=== PATIENT | male | born 1995 | race African-American/Black ===

== ENCOUNTER 2018-10-06 18:21 | Emergency (ER) | payer SELFPAY ==
[~2018-10-06] VITALS: Ht 170.2 cm; Wt 127.0 kg
[2018-10-06 18:29] VITALS: BP 149/86
--- NOTE | 2018-10-06 18:37 | NUR ---
PT AMBULATORY TO ROOM 5 W/ WANTING TO HAVE AN STD CHECK. PER PT HIS GF CAME BACK POSITIVE FOR CHLAMYDIA. PT RESTING ON GURNEY. QUINONEZ.
[2018-10-06] MEDS ORDERED: AZITHROMYCIN 500 MG TABLET ONE (19:08)
[2018-10-06] MEDS ORDERED: CEFTRIAXONE 250 MG ONE (19:09)
[2018-10-06 19:27] LABS: CULTURE INDICATED? YES; MICROSCOPIC INDICATED
[2018-10-06] MEDS ORDERED: AZITHROMYCIN 500 MG TABLET PO ONE (19:30)
[2018-10-06] MEDS ORDERED: CEFTRIAXONE 250 MG IM ONE (19:30)
== END 2018-10-06 20:50 | disposition home or self-care (01) ==
LOC: ED 20:44
DX: A74.9 Chlamydial infection, unspecified (principal); A54.9 Gonococcal infection, unspecified
CPT/HCPCS: 81001; 87086; 87491; 87591; 96372; 99283; J0696

== ENCOUNTER 2019-09-04 03:56 | Emergency (ER) | payer MEDICAID, OTHER ==
[~2019-09-04] VITALS: Ht 172.7 cm; Wt 130.0 kg
--- NOTE | 2019-09-04 04:16 | NUR ---
THIS IS A 24Y M THAT COMES IN THIS MORNING FOR COUGH AND SOB. PT STS HE DEVOLOPED A COUGH AROUND EAST AND IT HAS NOT GOTTEN ANY BETTER. PT STS HE HASN'T HAD AND SICK CONTACTS OR TRAVEL BUT STS HIS FRIEND WORKS IN A [employer] AND HAS BEEN AT HIS HOUSE RECENTLY. PT STS HE HAS A HX OF HTN. PT CONNECTED TO MONITORING, VSS, NADN AT THIS TIME.
[2019-09-04 05:56] VITALS: BP 145/76
--- NOTE | 2019-09-04 06:06 | NUR ---
Patient/Caregiver given discharge instructions and they have confirmed that they understand the instructions. Patient ambulatory with steady gait.
== END 2019-09-04 06:07 | disposition home or self-care (01) ==
LOC: ED 04:22
DX: J06.9 Acute upper respiratory infection, unspecified (principal); R07.89 Other chest pain; R00.0 Tachycardia, unspecified
CPT/HCPCS: 71045; 93005; 99283

== ENCOUNTER 2020-04-19 11:41 | Emergency (ER) | payer MEDICAID ==
[~2020-04-19] VITALS: Ht 170.2 cm; Wt 131.0 kg
[2020-04-19 11:50] VITALS: BP 145/68
[2020-04-19] MEDS ORDERED: IBUPROFEN 800 MG TABLET PO ONE (12:30)
== END 2020-04-19 13:51 | disposition home or self-care (01) ==
LOC: ED 13:30
DX: G89.11 Acute pain due to trauma (principal); M25.561 Pain in right knee; M79.89 Other specified soft tissue disorders
CPT/HCPCS: 29505; 99283